=== PATIENT | female | born 1975 | race Caucasian/White ===

== ENCOUNTER → 2020-04-23 11:39 | Outpatient (BNVA) | payer OTHER, SELFPAY | PROVIDERS: Visit Provider Nurse Practitioner | DX: N39.0 Urinary tract infection, site not specified (principal); R30.0 Dysuria | CPT/HCPCS: 81000 ==

== ENCOUNTER → 2020-08-13 10:52 | Outpatient (BNVA) | payer OTHER, SELFPAY | PROVIDERS: Visit Provider Nurse Practitioner | DX: N39.0 Urinary tract infection, site not specified (principal); T36.95XA Adverse effect of unspecified systemic antibiotic, initial encounter | CPT/HCPCS: 81000 ==

== ENCOUNTER → 2021-01-01 17:20 | Outpatient (BNVA) | payer OTHER, SELFPAY | PROVIDERS: Visit Provider Nurse Practitioner | DX: N39.0 Urinary tract infection, site not specified (principal) | CPT/HCPCS: 81000 ==